=== PATIENT | male | born 1985 | race Two or more races ===

== ENCOUNTER 2019-12-29 15:22 | Outpatient (REF) | payer OTHER, SELFPAY ==
--- NOTE | 2019-12-29 | XR_ITS ---
EXAMINATION: XR CHEST CLINICAL INFORMATION: Cough COMPARISON: 03/19/2017 chest radiographs. TECHNIQUE: 2 views of the chest were obtained. FINDINGS: No significant abnormality is noted involving the heart, lungs, mediastinum, bony thorax or soft tissues. XR/XR chest 2V IMPRESSION: No acute cardiopulmonary process.
[2019-12-29 16:07] LABS: MANUAL DIFF FLAG NO
[2019-12-29 16:25] LABS: Basophils Absolute Auto 0.1 X10*3/uL (0.0-0.2); Basophils Percent Auto 0.4 % (0-2); Eosinophils Absolute Auto 0.4 X10*3/uL (0.0-0.4); Eosinophils Percent Auto 3.6 % (0-4); Hematocrit 47.2 % (42-52); Hemoglobin 15.4 g/dl (14.0-18.0); Imm Gran Abs Auto 0.05 X10*3/uL (0.00-0.03); Imm Gran Pct Auto 0.4 % (0.0-0.4); Lymphocytes Absolute Auto 2.7 X10*3/uL (1.2-4.9); Lymphocytes Percent Auto 23.5 % (20-40); Mean Corpuscular HGB Conc 32.6 g/dl (31.0-36.0); Mean Corpuscular Hemoglobin 27.4 pg (27.0-33.0); Mean Platelet Volume 9.9 fL (9.4-12.4); Monocytes Absolute Auto 1.1 X10*3/uL (0.1-1.2); Monocytes Percent Auto 9.1 % (2-11); Neutrophils Absolute Auto 7.2 X10*3/uL (2.0-8.3); Platelet Count 405 X10*3/uL (160-400); Red Blood Count 5.62 X10*6/uL (4.60-5.80); Red Cell Distribution Width 12.5 % (11.0-16.0); White Blood Count 11.5 X10*3/uL (4.8-10.8)
[2019-12-29 16:54] LABS: Alanine Aminotransferase 75 U/L (0-40); Alkaline Phosphatase 79 U/L (39-117); Anion Gap 15 (12-20); Aspartate Amino Transferase 60 U/L (5-37); Bilirubin Total 1.1 mg/dL (0.0-1.0); Blood Urea Nitrogen 19 mg/dL (9-16); C Reactive Protein 0.31 mg/dL (< or = 0.50); Calcium 10.2 mg/dL (8.4-10.2); Carbon Dioxide 26 mmol/L (22-29); Chloride 103 mmol/L (96-108); Estimated Glomerular Filt Rate > 60; Glucose Random 83 mg/dL (60-115); Potassium 4.3 mmol/l (3.3-5.1); Sodium 140 mmol/L (135-145); Total Protein 7.9 g/dL (6.5-8.0)
[2019-12-30 17:11] LABS: Mumps Virus IgG Antibody >300.00 AU/mL; Rubeola IgG (Measles) >300.00 AU/mL
[2020-01-01 08:31] LABS: HBS Num1 148.05 mIU/mL (0-7.99); ~Hepatitis B Surface Antibody REACTIVE (Nonreactive)
== END 2019-12-29 15:23 | disposition home or self-care (01) ==
LOC: HO.LAB 15:22
PROVIDERS: PCP Internal Medicine; Visit Provider Internal Medicine
DX: Z20.828 Contact with and (suspected) exposure to other viral communicable diseases (principal); R05 Cough; J45.909 Unspecified asthma, uncomplicated; R11.0 Nausea
CPT/HCPCS: 36415; 71046; 80053; 85025; 86140; 86706; 86735; 86762; 86765; 86787; 87635

== ENCOUNTER 2021-03-18 11:10 | Outpatient (REF) | payer OTHER, SELFPAY | END 2021-03-18 11:11 | disposition home or self-care (01) | LOC: HO.LAB 11:10 | PROVIDERS: Visit Provider Internal Medicine | DX: Z13.89 Encounter for screening for other disorder (principal) ==

== ENCOUNTER 2023-09-14 09:52 | Outpatient (REF) | payer OTHER, SELFPAY ==
--- NOTE | ~2023-09-14 | XR_ITS ---
EXAMINATION: XR LUMBOSACRAL SPINE CLINICAL INFORMATION: Rule out osteoarthritis COMPARISON: None available. TECHNIQUE: Three views of the lumbosacral spine. FINDINGS: The lumbar spine maintains normal alignment. Vertebral body heights are maintained. There is mild degenerative disc disease with endplate degenerative changes of lower lumbar spine. No significant facet arthropathy. The paravertebral soft tissues are unremarkable. XR/XR lumbar spine 2-3V IMPRESSION: Mild degenerative disease of the lumbar spine.
[2023-09-14 10:06] LABS: MANUAL DIFF FLAG NO
[2023-09-14 10:20] LABS: Basophils Percent Auto 0.4 % (0-2); Eosinophils Absolute Auto 0.3 X10*3/uL (0.0-0.4); Eosinophils Percent Auto 3.1 % (0-4); Hematocrit 47.2 % (42.0-52.0); Hemoglobin 15.9 g/dl (14.0-18.0); Imm Gran Abs Auto 0.04 X10*3/uL (0.00-0.03); Imm Gran Pct Auto 0.4 % (0.0-0.4); Lymphocytes Absolute Auto 2.8 X10*3/uL (1.2-4.9); Lymphocytes Percent Auto 28.6 % (20-40); Mean Corpuscular HGB Conc 33.7 g/dl (31.0-36.0); Mean Corpuscular Hemoglobin 29.2 pg (27.0-33.0); Mean Corpuscular Volume 86.6 fL (80.0-98.0); Mean Platelet Volume 8.8 fL (9.4-12.4); Monocytes Percent Auto 10.1 % (2-11); Neutrophils Absolute Auto 5.6 x10*3/uL (2.0-8.3); Neutrophils Percent Auto 57.4 % (45-73); Platelet Count 333 X10*3/uL (160-400); Red Blood Count 5.45 X10*6/uL (4.60-5.80); Red Cell Distribution Width 13.7 % (11.0-16.0); White Blood Count 9.7 X10*3/uL (4.8-10.8)
[2023-09-14 11:28] LABS: Alanine Aminotransferase 23 U/L (0-40); Albumin Level 4.5 g/dL (3.5-5.0); Alkaline Phosphatase 91 U/L (39-117); Anion Gap 9 (12-20); Aspartate Amino Transferase 19 U/L (5-37); Bilirubin Total 0.6 mg/dL (0.0-1.0); Blood Urea Nitrogen 10 mg/dL (9-16); C Reactive Protein 0.13 mg/dL (< or = 0.50); Calcium 9.6 mg/dL (8.4-10.2); Carbon Dioxide 29 mmol/L (22-29); Chloride 106 mmol/L (96-108); Estimated Glomerular Filt Rate > 60; Free T4 (Free Thyroxine) 0.76 ng/dL (0.71-1.85); Glucose Random 100 mg/dL (60-115); Sodium 140 mmol/L (135-145); Thyroid Stimulating Hormone 1.04 uIU/mL (0.32-4.0); Total Protein 7.2 g/dL (6.5-8.0)
== END 2023-09-14 09:53 | disposition home or self-care (01) ==
LOC: HO.LAB 09:52
PROVIDERS: PCP Internal Medicine; Visit Provider Internal Medicine
DX: R63.4 Abnormal weight loss (principal); M54.50 Low back pain, unspecified
CPT/HCPCS: 36415; 72100; 80053; 82550; 84439; 84443; 85025; 86140

== ENCOUNTER 2023-11-22 20:00 | Emergency (ER) | payer OTHER, SELFPAY ==
--- NOTE | ~2023-11-22 | XR_ITS ---
EXAMINATION: XR CHEST 2 VIEWS CLINICAL INFORMATION: Productive cough. COMPARISON: Prior chest radiographs, most recently 12/29/2019. TECHNIQUE: Frontal and lateral views of the chest were obtained. FINDINGS: The heart, great vessels, pulmonary vasculature and mediastinum are normal. The lungs show no focal infiltrate, effusion or pneumothorax. There is no acute osseous abnormality. XR/XR chest 2V IMPRESSION: No active cardiopulmonary disease. Electronically signed by: Mc Armas MD 11/22/2023 10:55 PM EDT
[2023-11-22 20:02] VITALS: BP 116/68; PULSE 75; O2SAT 98
[2023-11-22 20:23] VITALS: BP 108/55; PULSE 62; RESP 18; TEMP 37.2; O2SAT 97; BMI 22.3
--- NOTE | 2023-11-22 20:26 | ED_ITS ---
HPI - General Adult General Chief complaint: General Medical Stated complaint: hot flashes, fever, chills, cough, hx of asthma Time Seen by Provider: 11/22/23 22:37 Source: patient Mode of arrival: ambulatory Limitations: no limitations History of Present Illness ED Provider: teri GOMEZ narrative: Patient has been coughing with sore throat running nose congested for last 2 weeks got worse in last 2 days with fever and body aches no other family member sick Related Data Previous Rx's ?Medication ?Instructions ?Recorded azithromycin 250 mg tablet 250 mg PO DAILY 4 days #4 tabs 11/22/23 (Zithromax) benzonatate 200 mg capsule 200 mg PO TID PRN cough #20 caps 11/22/23 ibuprofen 600 mg tablet 600 mg PO Q6H PRN fever or pain 11/22/23 #30 tabs Allergies Allergy/AdvReac Type Severity Reaction Status Date / Time No Known Allergies Allergy Unverified 11/22/23 20:26 [No Known Allergies*] Review of Systems Review of Systems: Yes all other systems are reviewed and are negative [facility] Social History Social History Smoked in Last 30 Days: No Use of substances other than those prescribed or required for medical reasons: No Any prior treatment program specific to substance use: No Advance Directives: No Advance Directives Information Provided: No Do you have a plan to hurt others: No Plan Physical Exam ED Vital Signs: Vital Signs - 24 hr 11/22/23 20:23 11/22/23 23:26 Temperature 98.9 F 98.9 F Pulse Rate 62 62 Respiratory Rate 18 18 Blood Pressure 108/55 L 108/55 L Pulse Oximetry 97 97 Oxygen Delivery Method Room Air Room Air BMI result Body Mass Index 22.3 Appearance: Alert. Oriented X3. No acute distress. Eyes: No pallor or icterus ENT: Pharynx normal. Oral Mucosa moist Neck: Normal inspection. Neck supple. CVS: Normal heart rate and rhythm. Pulses normal. Respiratory: No respiratory distress. Equal air entry bilateral, no wheezing/rales/rhonchi Abdomen: Soft and nontender. Bowel sounds are present, no mass palpable, no CVA tenderness Skin: Skin warm and dry. Normal skin color. Normal skin turgor. Extremities: No lower extremity edema. No calf tenderness Neuro: Oriented X 3. Course Course Course Narrative: This is a Rapid Medical Examination (RME) performed by Clement Corona PA-C in triage. Full HPI, ROS, assessment and treatment plan per primary provider in the Main ED. 38 yo male here for eval of multiple concerns. admits to sweats/ chills and subjective fevers as home x2 wks. admits to cough productive of black sputum. previous toabacco smoker. reports gum swelling. saw dentist last week - was supposed to be prescribed medication for the swelling however nothing was sent to the pharmacy. Plan: viral swabs, cxr Medications Administered Discontinued Medications Generic Name Dose Route Start Last Admin Trade Name Freq PRN Reason Stop Dose Admin Azithromycin 500 mg 11/22/23 23:10 11/22/23 23:18 Azithromycin 500 Mg Tablet PO 11/22/23 23:11 500 mg ONCE ONE Administration Benzonatate 200 mg 11/22/23 23:10 11/22/23 23:18 Benzonatate 100 Mg Capsule PO 11/22/23 23:11 200 mg ONCE ONE Administration Ibuprofen 600 mg 11/22/23 23:11 11/22/23 23:18 Ibuprofen 600 Mg Tablet PO 11/22/23 23:12 600 mg ONCE ONE Administration Medical Decision Making Medical Decision Making [facility] Narrative: Patient with COVID chest x-ray negative for infiltrate discharge on symptomatic treatment Lab Data [facility] Lab Attestation statement: I reviewed the patient's lab results. Labs: Lab Results 11/22/23 Range/Units 21:22 Influenza Type A (PCR) NEGATIVE (Negative) Influenza Type B (PCR) NEGATIVE (Negative) RSV RNA Qual (PCR) NEGATIVE (Negative) SARS-CoV-2 RNA (RT-PCR) POSITIVE A (Negative) Discharge Plan Discharge Clinical Impression: COVID-19, Acute pharyngitis Patient Disposition: Home, Self-Care Instructions: Pharyngitis (ED), COVID-19 (Coronavirus Disease 2019) (ED) Additional Instructions: Drink plenty of fluids Cough drops as prescribed Antibiotics as prescribed Follow the PCP as needed Social distancing Prescriptions: New benzonatate 200 mg capsule 200 mg PO TID PRN (Reason: cough) Qty: 20 0RF azithromycin [Zithromax] 250 mg tablet 250 mg PO DAILY 4 Days Qty: 4 0RF Rx Instructions: start on day 2 of therapy ibuprofen 600 mg tablet 600 mg PO Q6H PRN (Reason: fever or pain) Qty: 30 0RF Interventions: ED Discharge Assessment Last Done: 11/22/23 23:26 Discharge Date/Time: 11/22/23 23:20 Print Language: Greenlandic
[2023-11-22 22:04] LABS: Influenza A PCR NEGATIVE (Negative); Influenza B PCR NEGATIVE (Negative); Resp Syncy Virus RNA Qual PCR NEGATIVE (Negative); SARS COV2 PCR INHOUSE POSITIVE (Negative)
[2023-11-22] MEDS: Azithromycin 500 MG TABLET PO (23:18)
[2023-11-22] MEDS: Benzonatate 100 MG CAPSULE 200 MG PO (23:18)
[2023-11-22] MEDS: Ibuprofen 600 MG TABLET PO (23:18)
[2023-11-22 23:26] VITALS: BP 108/55; PULSE 62; RESP 18; TEMP 37.2; O2SAT 97
== END 2023-11-22 23:20 | disposition home or self-care (01) ==
PROVIDERS: Physician Assistant Medical; Emergency Provider Internal Medicine; PCP Internal Medicine
DX: U07.1 COVID-19 (principal); J02.9 Acute pharyngitis, unspecified; R50.9 Fever, unspecified; M79.10 Myalgia, unspecified site; R05.9 Cough, unspecified
CPT/HCPCS: 0241U; 71046; 99283; 99284

== ENCOUNTER 2024-07-20 08:01 | Outpatient (REF) | payer OTHER, SELFPAY ==
--- OUTSIDE RECORDS SUMMARY | 2024-07-20 08:03 | XMS_ITS | Clinical Summary ---
Author Organization [facility] Address [address] [place] [address] Care Team Providers Care Standards Engineer Name Role Phone Ty Oakley MD Primary Care Provider [phone] Social History Tobacco Use Types Packs/Day Years Used Date Smoking Tobacco: Never Assessed Sex and Gender Information Value Date Recorded Sex Assigned at Not on file Legal Sex Male 3:33 PM EST Gender Identity Not on file Sexual Orientation Not on file Obstetrics History Plan of Treatment Health Maintenance Due Date Last Done Comments Hepatitis B Vaccines (1 of 3 - 19+ 3-dose series) 05/19/2003 Pneumococcal Vaccine: Pediat rics (0 to 5 Years) and At-Risk Patients (6 to 64 Years) (1 of 2 - PCV) 05/19/2003 DTaP,Tdap,and Td Vaccines (2 - Td or Tdap) 03/08/2021 03/08/2011 COVID-19 Vaccine (2023-2 5 season) 2023 Cholesterol Screening (Lipid Panel) 12/22/2023 Depression Screening 12/22/2023 HIV Screening 12/22/2023 Hepatitis C Screening 12/22/2023 Social Influencers of Health Screening 12/22/2023 Influenza Vaccine (Season Ended) 2024 HIB Vaccines Aged Out No longer eligi ble based on patient's age to complete this topic HPV Vaccines Aged Out No longer eligi ble based on patient's age to complete this topic Hepatitis A Vaccines Aged Out No long er eligible based on patient's age to complete this topic IPV Vaccines Aged Out No longer eligi ble based on patient's age to complete this topic MMR Vaccines Aged Out No longer eligi ble based on patient's age to complete this topic Meningococcal ACWY Vaccine Aged Out N o longer eligible based on patient's age to complete this topic Meningococcal B Vaccine Aged Out No l onger eligible based on patient's age to complete this topic RSV Immunization Patients Un nati 20 months Aged Out No longer eligible b ased on patient's age to complete this topic Varicella Vaccines Aged Out No longer eligible based on patient's age to complete this topic Care Teams Standards Engineer Relationship Specialty Start Date End Date Ty Oakley MD [address] [place] [address] Dr Melody MA PCP - General Internal Medicine 10/10/15
[2024-07-20 08:52] LABS: Appearance Urine Clear; Color Urine Dark Yellow; Glucose Urine UA Negative (Negative); Leukocyte Esterase Urine Trace (Negative); Nitrite Urine Negative (Negative); PH 6.5 (5.0-9.0); Specific Gravity - Urine 1.025 (1.005-1.025); UMIC TRIGGER UACC YES; Urine Blood Negative (Negative); Urine Ketones Trace mg/dL (Negative); Urine Protein Negative (Neg-Trace)
[2024-07-20 08:55] LABS: Bacteria Urine None Seen (None Seen); Hyaline Casts Urine 0-2 /LPF (0-2); RBC Urine 0-2 /HPF (0-2); Squamous Epithelial Cell Urine 0-2 /HPF (0-2); WBC Urine 0-5 /HPF (0-5)
[2024-07-20 09:40] LABS: Syphilis Screen Nonreactive (Nonreactive)
[2024-07-20 09:51] LABS: HBsAGNum1 0.41 S/CO (0.00-0.99); HIV AB/AG Nonreactive (Nonreactive); HIV Num 1 0.06 S/CO (0.00-0.99); Hepatitis B Surface Antigen Negative (Negative); ~HepC Num1 0.13 S/CO (0.00-0.79); ~Hepatitis C Antibody Nonreactive (Nonreactive)
== END 2024-07-20 08:02 | disposition home or self-care (01) ==
LOC: HO.LAB 08:01
PROVIDERS: PCP Internal Medicine; Visit Provider Internal Medicine
DX: R30.0 Dysuria (principal); Z20.2 Contact with and (suspected) exposure to infections with a predominantly sexual mode of transmission
CPT/HCPCS: 36415; 81001; 86780; 86803; 87340; 87389

== ENCOUNTER 2025-01-10 15:07 | Outpatient (AMB) | payer OTHER, SELFPAY ==
--- NOTE | 2025-01-10 15:23 | MHC.PC.OV ---
Vital Signs 01/10/25 15:25 Height 5 ft 7 in Weight 163 lb 6 oz BMI 25.6 BP 102/64 Blood Pressure Location Lt brachial Position Sitting Respiration 16 Pulse 86 Pulse Source Pulse Oximeter Temp 97.8 F Temp Source Temporal Artery Scan Pulse Oximetry (%) 98 Intake Visit Reasons: New Patient ELIDIA Dr Oakley Information Systems Analyst Required: No Accompanied by: Self / Same As Patient Allergies No Known Allergies (No Known Allergies*) Allergy (Verified 01/10/25 15:23) Tobacco use date assessed: 01/10/25 Dental Screening Dental Screen Date: 01/10/25 Did you have a dental visit in the last 12 months?: Yes Did you have a dental problem in the last 6 months where you did not have access to dental care?: No Was dental information given to patient?: Patient has dentist HPI HPI Comments History of Present Illness Details The patient is a 39-year-old male presenting for evaluation of lower back pain, knee pain, and management of chronic conditions including asthma and anxiety. The patient reports a long-standing history of lower back issues, which he states cause back spasms, particularly during cold weather. A prior x-ray revealed mild degenerative changes. He also reports intermittent nerve pain in his knee that travels up his leg, causing him to limp. These episodes are associated with swelling and a prominent vein, and they resolve spontaneously after a few hours. The patient has a history of asthma and uses an albuterol inhaler daily. His asthma is uncontrolled, as he wakes up at night wheezing and gasping for air, requiring the use of his inhaler. He also reports dry mouth and difficulty breathing through his nose at night. He is diagnosed with generalized anxiety disorder, for which he takes lorazepam 0.5 mg, trazodone 100 mg, and venlafaxine 100 mg. He experiences significant anxiety and excessive sweating when he goes out. Past surgical history is significant for an appendectomy. Family history is notable for diabetes mellitus type 2 in his mother and cancer in his mother and grandmother. The patient smokes marijuana to help with sleep, but denies alcohol or other illicit drug use. He is on disability and has missed his last two appointments. Medical History: - Asthma - Generalized Anxiety Disorder - Low back pain with mild degenerative changes Surgical History: - Appendectomy Medications: - Lorazepam 0.5 mg for anxiety - Trazodone 100 mg for anxiety and associated diaphoresis - Venlafaxine 100 mg for anxiety - Albuterol inhaler for asthma, used daily Family History: - Mother: History of diabetes mellitus type 2 and spinal cancer. - Grandmother: History of cancer. Diagnostic Results: - Imaging: Prior x-ray of the lumbar spine showed mild degenerative changes. Social History: - Employment: Patient is disabled. - Substance Use: Patient smokes marijuana for sleep. - Patient denies alcohol, cocaine, or heroin use. - Functional Status: Patient is advised to stay active and take up hobbies. [facility] Medical History (Updated 01/10/25 @ 15:50 by Mark Allen MD) Generalized anxiety disorder Asthma Right knee pain Low back pain Social History Housing: Apartment Patient Tobacco Use Status: Never used Tobacco e-Cigarette/Vaping Use: Never Used Current occupational status: unemployed Questionnaire PHQ-9 Over the last 2 weeks, how often have you been bothered by any of the following problems? 1. Little interest or pleasure in doing things: not at all 2. Feeling down, depressed, or hopeless: not at all 3. Trouble falling or staying asleep, or sleeping too much: not at all 4. Feeling tired or having little energy: not at all 5. Poor appetite or overeating: not at all 6. Feeling bad about yourself - or that you are a failure or have let yourself or your family down: not at all 7. Trouble concentrating on things, such as reading the newspaper or watching television: not at all 8. Moving or speaking so slowly that other people could have noticed. Or the opposite - being so fidgety or restless that you have been moving around a lot more than usual: not at all 9. Thoughts that you would be better off or of hurting yourself in some way: not at all Total score: 0 Depression Screening Interpretation: Negative Depression Screening Done: Yes 36948 - PHQ-9 Billing: Yes Source: Developed by Drs. London Muñoz, Josefina Chavez, Paulo Almazan and colleagues, with an educational spring from [employer]. Thrive Questionnaire Date Thrive assessed: 01/10/25 I am a: Patient What is your living situation today?: I have a steady place to live Within the past 12 months, did the food you bought not last and you didn't have the money to get more?: Never true Within the past 12 months, did you worry whether your food would run out before you got money to buy more?: Never true Do you have trouble paying for medicines?: No Do you have trouble getting transportation to medical appointments?: No Do you have trouble paying your heating and electricity bill?: No Do you have trouble taking care of your child, family member or friend?: No Do you have trouble with day-to-day activities such as bathing, preparing meals, shopping, managing finances, etc.?: No Are you currently unemployed and looking for a job?: No Are you interested in more education?: No THRIVE Score: 0 AUDIT C Alcohol Use Questionnaire (AUDIT-C) 1. How often do you have a drink containing alcohol?: Never 3. How often do you have six or more drinks on one occasion?: Never Total Score: 0 Score Reviewed/Action Taken: Yes HECTOR-7 AMB Questionnaire HECTOR-7 Date HECTOR - 7 assessed: 01/10/25 Feeling nervous, anxious, or on edge: 1 = Several days Not being able to stop or control worryin = More than half the days Worrying too much about different things: 1 = Several days Trouble relaxin = Several days Being so restless that it is hard to sit still: 1 = Several days Becoming easily annoyed or irritable: 1 = Several days Feeling afraid as if something awful might happen: 1 = Several days Total HECTOR-7 score (0-4 normal; 5-9 mild; 10-14 moderate; 15-21 severe): 8 Source: Developed by Drs. London Muñoz, Josefina Chavez, Paulo Almazan and colleagues, with an educational spring from [employer]. HECTOR-7 Assessment Billing HECTOR-7 Assessment Tool: HECTOR-7 Assessment 66907 Review of Systems Narrative - Respiratory: Reports dyspnea, wheezing, and waking at night gasping for air requiring an inhaler. - Musculoskeletal: Reports lower back pain with spasms and intermittent radiating knee pain with associated swelling and limping. - Psychiatric: Reports anxiety. - Integumentary: Reports excessive sweating when anxious. - Head, Ears, Nose, Throat: Reports dry mouth. - Cardiovascular: Denies chest pain or palpitations. - Gastrointestinal: Reports nausea. Denies vomiting. - Allergic/Immunologic: Denies any known allergies. All systems reviewed & are unremarkable except as reviewed in HPI and above Physical exam (Primary Care) Vital Signs: Last Vital Signs Temp 97.8 F 01/10/25 15: Pulse 86 01/10/25: Resp 16 01/10/25: BP 102/64 01/10/25 15: Pulse Ox 98 01/10/25 15:25 BMI result Body Mass Index 25.6 Tobacco/Smoking Status: Tobacco use Status Tobacco use date assessed 01/10/25 01/10/25 15:30 Patient Tobacco Use Status Never used Tobacco 01/10/25 15: e-Cigarette/Vaping Use Never Used 01/10/25 15:30 Depression Screening Interpretation: Negative Narrative General: Alert and oriented, Well nourished, No acute distress. Eye: Pupils are equal, round and reactive to light, Intact accommodation, Extraocular movements are intact, Normal conjunctiva, Vision unchanged. HENT: Normocephalic, Atraumatic, Tympanic membranes are clear, Normal hearing, Oral mucosa is moist, No pharyngeal erythema, Ear canals patent. Respiratory: Lungs CTA bilaterally, No wheeze, Respirations are non-labored. Patient reports asthma and uses albuterol inhaler daily, waking up at night due to wheezing. Cardiovascular: Regular rate, Regular rhythm, S1 auscultated, S2 auscultated, No murmur, Good pulses equal in all extremities, Normal peripheral perfusion, No edema. Gastrointestinal: Soft, Non-tender, Non-distended, Normal bowel sounds, No organomegaly. Musculoskeletal: Normal range of motion, Normal strength, No tenderness, No swelling, No deformity, Normal gait. Reports issues with lower back and knee pain with occasional swelling and limping. Integumentary: Warm, Dry, [place], Intact. Neurologic: Alert, Oriented, Normal sensory, Normal motor function, No focal defects, Cranial Nerves II-XII are grossly intact, Normal deep tendon reflexes. Psychiatric: Cooperative, Appropriate mood & affect, Normal judgment. Reports generalized anxiety disorder, taking venlafaxine, trazodone, and lorazepam. Coding Level of Care Code New Pt Level 4 (22550) Diagnoses Mild persistent asthma without complication J45.30 Asthma severity: mild Asthma persistence: persistent Asthma complication type: uncomplicated Chronic bilateral low back pain without sciatica M54.50; G89.29 Chronicity: chronic Back pain laterality: bilateral Sciatica presence: without sciatica Acute pain of right knee M25.561 Chronicity: acute Generalized anxiety disorder F41.1 Additional Codes PHQ-9 - 60501 - PHQ-9 Billing: Yes ([id number]) HECTOR-7 Assessment Billing - HECTOR-7 Assessment Tool: HECTOR-7 Assessment 02227 ([id number]) Assessment & Plan Assessment & Plan (1) Asthma: Comment: - The patient's daily use of a rescue inhaler, including nocturnal awakenings with wheezing, indicates his asthma is not well-controlled. - Will start a daily low-dose steroid inhaler, Symbicort 80-4.5, to be used twice a day. (ICS-Laba with plans to increase as neede) - The patient will continue to use his albuterol inhaler as needed. - The patient was counseled on the importance of ceasing marijuana use due to his asthma. - Follow-up is scheduled in 2 months to reassess symptoms and adjust treatment as needed in a stepwise approach. Code(s): J45.909 - Unspecified asthma, uncomplicated Category: Medical Qualifiers: Asthma severity: mild Asthma persistence: persistent Asthma complication type: uncomplicated Qualified Code(s): J45.30 - Mild persistent asthma, uncomplicated (2) Low back pain: Comment: - The patient has a history of mild degenerative changes noted on a prior x-ray and experiences spasms, particularly in cold weather. - X Ray reviewed from 2023 showing mild degenerative changes - He was counseled to increase physical activity and stretching to manage the spasms and to avoid being sedentary. Code(s): M54.50 - Low back pain, unspecified Category: Medical Qualifiers: Chronicity: chronic Back pain laterality: bilateral Sciatica presence: without sciatica Qualified Code(s): M54.50 - Low back pain, unspecified; G89.29 - Other chronic pain (3) Right knee pain: Comment: - The patient describes intermittent nerve pain with swelling. - To further evaluate, an x-ray of the knee is ordered. Code(s): M25.561 - Pain in right knee Category: Medical Qualifiers: Chronicity: acute Qualified Code(s): M25.561 - Pain in right knee (4) Generalized anxiety disorder: Comment: - The patient is currently managed on lorazepam, trazodone, and venlafaxine. (Outside provider) - He was encouraged to stay active and find hobbies to help manage his condition. Code(s): F41.1 - Generalized anxiety disorder Category: Medical Plan: Health Maintenance: - Immunizations: Advised patient to get the COVID-19 shot, emphasizing increased risk due to his asthma. - Substance use counseling: Advised patient to stop smoking marijuana because of his asthma diagnosis. - Screening Labs: Ordered blood work to check electrolytes, cholesterol, glucose, thyroid function, HIV, hepatitis, syphilis, and vitamin D levels. - Lifestyle: Encouraged patient to stay active, stretch regularly for his back pain, and find hobbies to help with his anxiety and overall well-being. Patient was informed and verbally consented to the use of an ambient scribe for clinic note documentation during this visit. Plan I discussed with the patient that his asthma appears to be uncontrolled, which is why he is using his rescue inhaler daily and waking up at night. I explained that we will start a daily maintenance inhaler, Symbicort, to be used twice a day, to get his symptoms under control. I informed him that this is a stepwise treatment, and we will increase the dose if his symptoms do not improve. I advised him that his low back pain is from mild degenerative changes and that staying active and stretching is the best way to manage it. For his knee pain, I recommended an x-ray to investigate further. I strongly counseled him against smoking marijuana due to his asthma, explaining the risk of airway closure. I also stressed the importance of getting his COVID-19 vaccine. I ordered a full panel of screening labs. The patient agreed to the plan and will follow up in two months. Orders: Orders Complete Blood Count Auto Diff Today Z76.89 - Persons encountering health services in other specified circumstances Comprehensive Met. Panel Today Z76.89 - Persons encountering health services in other specified circumstances Hemoglobin A1c Today Z76.89 - Persons encountering health services in other specified circumstances Hepatitis A,B,C Profile Today Z76.89 - Persons encountering health services in other specified circumstances HIV Ab/Ag Today Z76.89 - Persons encountering health services in other specified circumstances Syphilis Screen Today Z76.89 - Persons encountering health services in other specified circumstances TSH reflex Free T4 Today Z76.89 - Persons encountering health services in other specified circumstances XR knee RT 4V Today M25.561 - Pain in right knee Lipid Panel Today Z76.89 - Persons encountering health services in other specified circumstances Vitamin D 25-OH Total Today Z76.89 - Persons encountering health services in other specified circumstances Medications: New budesonide-formoterol 80-4.5 mcg/actuation (Symbicort) 1 puff inhalation BID 10.2 grams 2RF Discontinued azithromycin (Zithromax) start on day 2 of therapy Discontinued Reason: Patient Completed Course 250 mg PO DAILY 4 days 4 tabs 0RF benzonatate Discontinued Reason: Patient Completed Course 200 mg PO TID PRN 20 caps 0RF cough Patient Instructions: - Start using the Symbicort inhaler twice a day, every morning and evening, to help control your asthma. - You can continue to use your albuterol inhaler if you have sudden breathing problems. - It is very important to stop smoking marijuana, as it can make your asthma much worse. - For your low back pain, stay active and do regular stretches. Do not stay still when it hurts; movement will help. - Please get your COVID-19 shot as soon as possible, as it is very important for people with asthma. - Go to the hospital lab to have your blood drawn for the tests that were ordered. - [facility] to the [facility] for an x-ray of your knee. - We will call you if any of your test results are abnormal. - Please schedule a follow-up appointment to see me in two months to check on how you are doing with the new inhaler.
[2025-01-10 15:25] VITALS: BP 102/64; PULSE 86; RESP 16; TEMP 36.6; O2SAT 98; BMI 25.6
--- OUTSIDE RECORDS SUMMARY | 2025-01-10 18:09 | XMS_ITS | Clinical Summary ---
Author Organization [facility] Address [address] [place] [address] Care Team Providers Care Juvenile Detention Officer Name Role Phone Unavailable Primary Care Provider Unavailabl e Medications No known medications Active Problems No known active problems Social History Tobacco Use Types Packs/Day Years Used Date Smoking Tobacco: Never Assessed Sex and Gender Information Value Date Recorded Sex Assigned at Male 11/06/2023 2:21 AM EDT Gender Identity Not on file Sexual Orientation Not on file Job Start Date Occupation Industry Not on file Not on file Not on file Last Filed Vital Signs Vital Sign Reading Time Taken Comments Blood Pressure 121/67 11/06/2023 9:05 AM EDT Pulse 86 11/06/2023 9:05 AM EDT Temperature 37 C (98.6 F) 11/06/2023 9:05 AM EDT Respiratory Rate 18 11/06/2023 9:05 AM EDT Oxygen Saturation 97% 11/06/2023 9:05 AM EDT Inhaled Oxygen Concentration - - Weight - - Height - - Body Mass Index - - Plan of Treatment Not on file
== END 2025-01-10 15:43 | disposition home or self-care (01) ==
LOC: HO.HMCHD 15:07
PROVIDERS: PCP Internal Medicine; Visit Provider Student in an Organized Health Care Education/Training Program
DX: J45.30 Mild persistent asthma, uncomplicated (principal); M54.50 Low back pain, unspecified; G89.29 Other chronic pain; M25.561 Pain in right knee; F41.1 Generalized anxiety disorder

== ENCOUNTER → 2025-01-10 15:07 | Outpatient (BNVA) | payer OTHER, SELFPAY | PROVIDERS: PCP Internal Medicine; Visit Provider Student in an Organized Health Care Education/Training Program | DX: J45.30 Mild persistent asthma, uncomplicated (principal); M54.50 Low back pain, unspecified; G89.29 Other chronic pain; M25.561 Pain in right knee; F41.1 Generalized anxiety disorder; Z79.899 Other long term (current) drug therapy; Z13.31 Encounter for screening for depression; Z13.39 Encounter for screening examination for other mental health and behavioral disorders | CPT/HCPCS: 96127; 99202 ==

== ENCOUNTER 2025-01-13 09:55 | Outpatient (REF) | payer OTHER, SELFPAY ==
--- NOTE | ~2025-01-13 | XR_ITS ---
EXAMINATION: XR KNEE, RIGHT CLINICAL INFORMATION: M25.561 - Pain in right knee COMPARISON: X-ray 03/10/2016 TECHNIQUE: Four views of the right knee. FINDINGS: No fracture. Small suprapatellar joint fluid.. Alignment is anatomic. Joint spaces are maintained. No erosions. No abnormal soft tissue calcification. XR/XR knee RT 4V IMPRESSION: No acute osseous findings Electronically signed by: Davon Nieto MD 01/15/2025 11:50 AM EST
--- OUTSIDE RECORDS SUMMARY | 2025-01-13 09:59 | XMS_ITS | Clinical Summary ---
Author Organization [facility] Address [address] [place] [address] Care Team Providers Care Lockmaker Name Role Phone Unavailable Primary Care Provider [...]
--- OUTSIDE RECORDS SUMMARY | 2025-01-13 09:59 | XMS_ITS | Clinical Summary ---
Author Organization [facility] Address [address] [place] [address] Care Team Providers Care Force Adjustment Supervisor Name Role Phone Ty Oakley MD Primary Care Provider [phone] Social History Tobacco Use Types Packs/Day Years [...] 5 Years) and At-Risk Patients (6 to 49 Years) (1 of 2 - PCV) 05/19/2003 HPV Vaccines (1 - 3-dose SCD M series) 05/19/2011 DTaP,Tdap,and Td Vaccines (2 - Td or Tdap) 03/08/2021 03/08/2011 Cholesterol Screening (Lipid Panel) 12/22/2023 HIV Screening 12/22/2023 Hepatitis C Screening 12/22/2023 Social Influencers of Health Screening 12/22/2023 Depression Screening 03/08/2024 COVID-19 Vaccine ( - 2023-2 5 season) 2024 Influenza Vaccine (#1) 2024 RSV Immunization Adult Patie nts (1 - 1-dose 75+ series) 05/19/2059 HIB Vaccines Aged Out No longer eligi [...] age to complete this topic Care Teams Force Adjustment Supervisor Relationship Specialty Start Date End Date Ty Oakley MD [address] [place] [address] Dr Melody MA PCP - General Internal Medicine 10/10/15
[2025-01-13 10:21] LABS: MANUAL DIFF FLAG NO
[2025-01-13 11:36] LABS: Hematocrit 47.0 % (42.0-52.0); Hemoglobin 15.9 g/dl (14.0-18.0); Imm Gran Abs Auto 0.06 X10*3/uL (0.00-0.03); Imm Gran Pct Auto 0.5 % (0.0-0.4); Lymphocytes Absolute Auto 3.5 X10*3/uL (1.2-4.9); Mean Corpuscular HGB Conc 33.8 g/dl (31.0-36.0); Mean Corpuscular Hemoglobin 28.6 pg (27.0-33.0); Mean Corpuscular Volume 84.5 fL (80.0-98.0); NRBC Abs Auto 0.000 X10*3/uL (0.0-0.012); NRBC Pct Auto 0.0 /100WBC (0.0-0.2); Platelet Count 341 X10*3/uL (160-400); Red Blood Count 5.56 X10*6/uL (4.60-5.80); White Blood Count 11.5 X10*3/uL (4.8-10.8)
[2025-01-13 12:19] LABS: Alanine Aminotransferase 62 U/L (0-40); Albumin Level 5.0 g/dL (3.5-5.0); Alkaline Phosphatase 87 U/L (39-117); Anion Gap 14 (12-20); Aspartate Amino Transferase 40 U/L (5-37); Blood Urea Nitrogen 18 mg/dL (9-16); Calcium 9.8 mg/dL (8.4-10.2); Carbon Dioxide 22 mmol/L (22-29); Chloride 108 mmol/L (96-108); Cholesterol 255 mg/dL (<200); Estimated Glomerular Filt Rate > 60; HDL Cholesterol 46 mg/dL (>40); Potassium 3.7 mmol/L (3.3-5.1); Sodium 140 mmol/L (135-145); Total Protein 7.7 g/dL (6.5-8.0); Triglycerides 97 mg/dL (<150)
[2025-01-14 03:49] LABS: Syphilis Screen Nonreactive (Nonreactive)
[2025-01-14 04:19] LABS: HBS Num1 157.00 mIU/mL (0-7.99); HBc Num1 0.10 S/CO (0.00-0.79); HBsAGNum1 0.43 S/CO (0.00-0.99); HIV Num 1 0.06 S/CO (0.00-0.99); Hepatitis A Antibody IgM 0.17 Index (0-0.79); Hepatitis B Surface Antigen Negative (Negative); ~HepC Num1 0.15 S/CO (0.00-0.79); ~Hepatitis A Antibody IgM Nonreactive (Nonreactive); ~Hepatitis B Surface Antibody REACTIVE (Nonreactive); ~Hepatitis C Antibody Nonreactive (Nonreactive)
== END 2025-01-13 09:56 | disposition home or self-care (01) ==
LOC: HO.LAB 09:55
PROVIDERS: PCP Student in an Organized Health Care Education/Training Program; Visit Provider Student in an Organized Health Care Education/Training Program
DX: Z11.4 Encounter for screening for human immunodeficiency virus [HIV] (principal); Z20.2 Contact with and (suspected) exposure to infections with a predominantly sexual mode of transmission; Z20.6 Contact with and (suspected) exposure to human immunodeficiency virus [HIV]; Z11.59 Encounter for screening for other viral diseases; Z76.89 Persons encountering health services in other specified circumstances; M25.561 Pain in right knee
CPT/HCPCS: 36415; 73564; 80053; 80061; 82306; 83036; 84443; 85025; 86704; 86706; 86709; 86780; 86803; 87340; 87389

== ENCOUNTER 2025-01-22 12:10 | Outpatient (REF) | payer OTHER, SELFPAY ==
[2025-01-22 12:23] LABS: MANUAL DIFF FLAG NO
[2025-01-22 12:58] LABS: Hematocrit 48.1 % (42.0-52.0); Hemoglobin 16.1 g/dl (14.0-18.0); Imm Gran Abs Auto 0.05 X10*3/uL (0.00-0.03); Imm Gran Pct Auto 0.4 % (0.0-0.4); Lymphocytes Absolute Auto 2.9 X10*3/uL (1.2-4.9); Mean Corpuscular HGB Conc 33.5 g/dl (31.0-36.0); Mean Corpuscular Hemoglobin 28.9 pg (27.0-33.0); Mean Corpuscular Volume 86.4 fL (80.0-98.0); NRBC Abs Auto 0.000 X10*3/uL (0.0-0.012); NRBC Pct Auto 0.0 /100WBC (0.0-0.2); Platelet Count 339 X10*3/uL (160-400); Red Blood Count 5.57 X10*6/uL (4.60-5.80); White Blood Count 11.9 X10*3/uL (4.8-10.8)
[2025-01-22 13:32] LABS: Alanine Aminotransferase 46 U/L (0-40); Albumin Level 5.1 g/dL (3.5-5.0); Alkaline Phosphatase 94 U/L (39-117); Anion Gap 13 (12-20); Aspartate Amino Transferase 35 U/L (5-37); Blood Urea Nitrogen 16 mg/dL (9-16); Calcium 9.9 mg/dL (8.4-10.2); Carbon Dioxide 26 mmol/L (22-29); Chloride 105 mmol/L (96-108); Cholesterol 248 mg/dL (<200); Estimated Glomerular Filt Rate > 60; HDL Cholesterol 40 mg/dL (>40); Potassium 3.8 mmol/L (3.3-5.1); Sodium 140 mmol/L (135-145); Total Protein 7.8 g/dL (6.5-8.0); Triglycerides 162 mg/dL (<150)
[2025-01-22 13:43] LABS: Free T4 (Free Thyroxine) 1.04 ng/dL (0.71-1.85); Thyroid Stimulating Hormone 1.33 uIU/mL (0.32-4.0)
== END 2025-01-22 12:11 | disposition home or self-care (01) ==
LOC: HO.LAB 12:10
PROVIDERS: PCP Student in an Organized Health Care Education/Training Program; Visit Provider Registered Nurse Psychiatric/Mental Health
DX: Z79.899 Other long term (current) drug therapy (principal)
CPT/HCPCS: 36415; 80053; 80061; 82248; 84439; 84443; 85025

== ENCOUNTER 2025-03-07 08:19 | Outpatient (REF) | payer OTHER, SELFPAY ==
--- NOTE | ~2025-03-07 | US_ITS ---
EXAMINATION: US ABDOMEN LIMITED CLINICAL INFORMATION: Abnormal liver function tests. COMPARISON: CT of the abdomen and pelvis July 2014 TECHNIQUE: Real-time imaging of the right upper quadrant abdominal viscera. FINDINGS: PANCREAS: Not well-visualized due to bowel gas LIVER: The liver is normal in size. The liver contour is normal. Parenchymal echogenicity is normal. No focal hepatic lesion. There is no intrahepatic biliary duct dilatation seen. GALLBLADDER: The gallbladder is physiologically distended without evidence of stones, sludge, polyps, wall thickening or pericholecystic fluid. COMMON BILE DUCT: Normal in caliber measuring 0.3 cm in diameter. RIGHT KIDNEY: 1.3 x 1 x 0.9 cm cyst in the midpole. No hydronephrosis. No renal calculi. The kidney measures 10.7 cm in maximum dimension. FREE FLUID: None. US/US abdomen limited IMPRESSION: Normal-appearing liver gallbladder and bile ducts. Small right renal cyst. Limited visualization of the pancreas. Electronically signed by: Milena Hendricks MD 03/07/2025 09:06 AM [id number]
--- OUTSIDE RECORDS SUMMARY | 2025-03-07 08:24 | XMS_ITS | Clinical Summary ---
Author Organization [facility] it[facility] Address [address] [place] [address] Care Team Providers Care Licensing Engineer Name Role Phone Ty Oakley MD Primary Care Provider [phone] Social History Tobacco Use Types Packs/Day Years Used Date Smoking Tobacco: Never Assessed Sex and Gender Information Value Date Recorded Sex Assigned at Not on file Legal Sex Male 3:33 PM EST Gender Identity Not on file Sexual Orientation Not on file Plan of Treatment Health Maintenance Due Date [...] Depression Screening 03/08/2024 COVID-19 Vaccine ( - 2024-2 6 season) 2024 Influenza Vaccine (#1) 2024 RSV [...] age to complete this topic Care Teams Licensing Engineer Relationship Specialty Start Date End Date Ty Oakley MD [address] [place] [address] Dr Melody MA PCP - General Internal Medicine 10/10/15
--- OUTSIDE RECORDS SUMMARY | 2025-03-07 08:24 | XMS_ITS | Clinical Summary ---
Author Organization [facility] Prior to 08/05/24 Address [address] [place] [address] Care Team Providers Care Poultry Offal Icer Name Role Phone Unavailable Primary Care Provider [...]
== END 2025-03-07 08:20 | disposition home or self-care (01) ==
LOC: HO.US 08:19
PROVIDERS: PCP Student in an Organized Health Care Education/Training Program; Visit Provider Student in an Organized Health Care Education/Training Program
DX: R74.8 Abnormal levels of other serum enzymes (principal)
CPT/HCPCS: 76705

== ENCOUNTER → 2025-03-07 08:29 | Outpatient (BNV) | payer OTHER, SELFPAY | PROVIDERS: PCP Student in an Organized Health Care Education/Training Program; Visit Provider Radiology Diagnostic Radiology | DX: R94.5 Abnormal results of liver function studies (principal); N28.1 Cyst of kidney, acquired | CPT/HCPCS: 76705 ==